=== PATIENT | female | born 1995 | race Caucasian/White ===

== ENCOUNTER → 2023-03-16 | Outpatient (CLI) | payer SELFPAY, OTHER ==
[2023-03-16 10:02] LABS: Absolute Lymphocyte Count 1.91 X10^3/uL (0.83-4.51); Absolute Neutrophil Count 5.7 X10^3/uL (2.0-7.7); Basophil# 0.03 X10^3/uL; Basophil% 0.4 % (0-1); Eosinophil# 0.02 X10^3/uL; Eosinophils% 0.2 % (0-5); Hematocrit 38.9 % (37-47); Hemoglobin 13.5 g/dL (12.0-15.0); Lymphocyte # 1.91 X10^3/ul (0.83-4.51); Lymphocyte % 23.8 % (19-41); Mean Corp Hgb Conc 34.7 g/dL (32-36); Mean Corpuscular Hgb 33.1 pg (27.0-32.0); Mean Corpuscular Volume 95.3 fL (81-99); Mean Platelet Vol. 9.6 fl (6.2-12.0); Monocyte# 0.34 X10^3/uL; Monocyte% 4.2 % (0-10); NRBC Flagged by Analyzer 0 % (0-5); Neutrophil # 5.69 X10^3/uL (2.7-7.7); Neutrophil % 70.9 % (47-70); Platelet Count 145 K/mm3 (150-450); RBC Distribution Width CV 12.9 % (11.6-14.6); RBC Distribution Width SD 44.7 fl (35.1-43.9); Red Blood Count 4.08 M/mm3 (4.2-5.4)
--- NOTE | 2023-03-16 11:50 | US_ITS ---
EXAM: US SECOND OR THIRD TRIMESTER , TRANSABDOMINAL CLINICAL INDICATION: anatomy TECHNIQUE: Transabdominal obstetrical ultrasound of the maternal pelvis and a second or third trimester with image documentation. COMPARISON: No relevant prior studies available. FINDINGS: FETUS: There is an intrauterine gestation. HEART RATE: heart rate is 158 bpm. PRESENTATION: The fetus is in breech position. PLACENTA: Placenta is anterior. No placenta previa. No abruption. AMNIOTIC FLUID: Unremarkable. ANATOMY: The spine, nose, lips, four-chamber heart, diaphragm, stomach, bladder, extremities and three-vessel cord were all visualized. BIOMETRICS GESTATIONAL AGE: Gestational age 20 weeks 2 days. RICHARD: RICHARD 07/25/2023. EFW: Estimated weight 400 g, 35th percentile. BPD: Biparietal diameter 4.9 cm age 20 weeks 5 days, 24th percentile. HC: Head circumference 18.3 cm age 20 weeks 5 days, 16th percentile. AC: Abdominal circumference 16.7 cm age 21 weeks 5 days, 56 percentile. FL: Femur length 3.3 cm age 20 weeks 3 days, 16th percentile. MATERNAL: UTERUS: Unremarkable. No myometrial mass. CERVIX: The cervix measures 4 cm. ADNEXA: Unremarkable. No adnexal masses. FREE FLUID: Maximum vertical pocket of fluid is 6.5 cm. US/OB Anatomy w/ Transvaginal IMPRESSION: Intrauterine gestation with an average ultrasound age of 20 weeks 5 days and ultrasound estimated due date of 07/29/2023. heart rate is 158 bpm. Electronically Signed: Rafal Ayala MD at 23:42 EDT ,
[2023-03-16 13:28] LABS: HIV - WCH Non-Reactive (Nonreactive); Hepatitis B Surface Antigen Non-Reactive (Nonreactive); Hepatitis C Antibody Non-Reactive (Nonreactive); Rubella IgG Non-Reactive (Nonreactive); Syphilis Antibodies Non-reactive
== END | disposition home or self-care (01) ==
PROVIDERS: Referring Provider Obstetrics & Gynecology; Visit Provider Obstetrics & Gynecology
DX: O09.90 Supervision of high risk pregnancy, unspecified, unspecified trimester (principal); Z3A.00 Weeks of gestation of pregnancy not specified
CPT/HCPCS: 36415; 76805; 76817; 85025; 86703; 86762; 86780; 86803; 86850; 86900; 86901; 87086; 87340; 87491; 87591

== ENCOUNTER → 2023-05-04 | Outpatient (CLI) | payer OTHER, SELFPAY ==
[2023-05-04 10:00] LABS: Absolute Lymphocyte Count 1.97 X10^3/uL (0.83-4.51); Absolute Neutrophil Count 7.2 X10^3/uL (2.0-7.7); Basophil# 0.02 X10^3/uL; Basophil% 0.2 % (0-1); Eosinophil# 0.02 X10^3/uL; Eosinophils% 0.2 % (0-5); Hematocrit 42.2 % (37-47); Hemoglobin 14.4 g/dL (12.0-15.0); Lymphocyte # 1.97 X10^3/ul (0.83-4.51); Lymphocyte % 20.1 % (19-41); Mean Corp Hgb Conc 34.1 g/dL (32-36); Mean Corpuscular Hgb 32.9 pg (27.0-32.0); Mean Corpuscular Volume 96.3 fL (81-99); Mean Platelet Vol. 9.7 fl (6.2-12.0); Monocyte# 0.55 X10^3/uL; Monocyte% 5.6 % (0-10); NRBC Flagged by Analyzer 0 % (0-5); Neutrophil % 73.3 % (47-70); Platelet Count 146 K/mm3 (150-450); RBC Distribution Width CV 12.3 % (11.6-14.6); RBC Distribution Width SD 43.4 fl (35.1-43.9); Red Blood Count 4.38 M/mm3 (4.2-5.4); White Blood Count 9.8 K/mm3 (4.4-11.0)
[2023-05-04 10:14] LABS: Glucose Challenge Gest 1H 50g 118 mg/dL (70-140)
[2023-05-04 10:47] LABS: HIV - WCH Non-Reactive (Nonreactive); Syphilis Antibodies Non-reactive
== END | disposition home or self-care (01) ==
PROVIDERS: Referring Provider Obstetrics & Gynecology; Visit Provider Obstetrics & Gynecology
DX: Z34.90 Encounter for supervision of normal pregnancy, unspecified, unspecified trimester (principal); D69.6 Thrombocytopenia, unspecified; O99.119 Other diseases of the blood and blood-forming organs and certain disorders involving the immune mechanism complicating pregnancy, unspecified trimester; Z3A.00 Weeks of gestation of pregnancy not specified
CPT/HCPCS: 36415; 82950; 85025; 86703; 86780; 86850; 86900; 86901; 87491; 87591

== ENCOUNTER → 2023-06-17 | Outpatient (CLI) | payer OTHER, SELFPAY ==
[2023-06-17 15:17] LABS: Absolute Lymphocyte Count 1.92 X10^3/uL (0.83-4.51); Absolute Neutrophil Count 8.3 X10^3/uL (2.0-7.7); Basophil# 0.03 X10^3/uL; Basophil% 0.3 % (0-1); Eosinophils% 0.9 % (0-5); Hematocrit 40.9 % (37-47); Hemoglobin 14.2 g/dL (12.0-15.0); Lymphocyte # 1.92 X10^3/ul (0.83-4.51); Lymphocyte % 17.3 % (19-41); Mean Corp Hgb Conc 34.7 g/dL (32-36); Mean Corpuscular Volume 97.8 fL (81-99); Mean Platelet Vol. 9.6 fl (6.2-12.0); Monocyte# 0.65 X10^3/uL; Monocyte% 5.9 % (0-10); NRBC Flagged by Analyzer 0 % (0-5); Neutrophil # 8.32 X10^3/uL (2.7-7.7); Neutrophil % 75.1 % (47-70); Platelet Count 154 K/mm3 (150-450); RBC Distribution Width CV 12.4 % (11.6-14.6); RBC Distribution Width SD 44.7 fl (35.1-43.9); Red Blood Count 4.18 M/mm3 (4.2-5.4); White Blood Count 11.1 K/mm3 (4.4-11.0)
== END | disposition home or self-care (01) ==
LOC: PAVLAB 14:44
PROVIDERS: Referring Provider Nurse Practitioner Women's Health; Visit Provider Nurse Practitioner Women's Health
DX: O99.119 Other diseases of the blood and blood-forming organs and certain disorders involving the immune mechanism complicating pregnancy, unspecified trimester (principal); D69.6 Thrombocytopenia, unspecified; Z3A.00 Weeks of gestation of pregnancy not specified
CPT/HCPCS: 36415; 85025

== ENCOUNTER → 2023-06-29 | Outpatient (CLI) | payer OTHER, SELFPAY | END | disposition home or self-care (01) | PROVIDERS: Visit Provider Advanced Practice Midwife | DX: O09.90 Supervision of high risk pregnancy, unspecified, unspecified trimester (principal); Z3A.00 Weeks of gestation of pregnancy not specified | CPT/HCPCS: 87081 ==

== ENCOUNTER 2023-07-18 02:02 | Inpatient (IN) | payer SELFPAY, OTHER ==
[2023-07-18] VITALS (40 sets, daily range): BP systolic 101–129; BP diastolic 56–78; PULSE 75–100; RESP 15–18; TEMP 36.4–37; O2SAT 82–100; BMI 34.9
--- OUTSIDE RECORDS SUMMARY | 2023-07-18 01:53 | XMS RPT_ITS | CCD ---
Author Name Unknown Address [address] [place] [address] Organization [facility] Care Team Providers Care Molecular Spectroscopist Name Role Phone VACCARIELLO, JEY Admitting Unavailable VACCARIELLO, JEY Attending Unavailable VACCARIELLO, JEY Primary Care Unavailable UPTAIN, CRYSTAL CNM Admitting Unavailable UPTAIN, CRYSTAL CNM Attending Unavailable UPTAIN, CRYSTAL CNM Primary Care Unavailable VACCARIELLO, JEY Admitting Unavailable VACCARIELLO, JEY Attending Unavailable VACCARIELLO, JEY Primary Care Unavailable UPTAIN, CRYSTAL CNM Admitting Unavailable UPTAIN, CRYSTAL CNM Attending Unavailable UPTAIN, CRYSTAL CNM Primary Care Unavailable UPTAIN, CRYSTAL CNM Admitting Unavailable UPTAIN, CRYSTAL CNM Attending Unavailable UPTAIN, CRYSTAL CNM Primary Care Unavailable VACCARIELLO, JEY Admitting Unavailable VACCARIELLO, JEY Attending Unavailable VACCARIELLO, JEY Primary Care Unavailable UPTAIN, CRYSTAL CNM Admitting Unavailable UPTAIN, CRYSTAL CNM Attending Unavailable UPTAIN, CRYSTAL CNM Primary Care Unavailable VACCARIELLO, JEY Admitting Unavailable VACCARIELLO, JEY Attending Unavailable VACCARIELLO, JEY Primary Care Unavailable Problems Problem Classification Problem Date Documented Da te Episodic/Chronic Malposition; malpresentation (4 sources) Maternal care for breech presentation, fetus 1; Translations: [Maternal care for breech presentation, fetus 2] Onset: 02-06-2022 Episodic Other complications of (1 source) Varicose veins of lower extremity in , third trimester; Translations: [Varicose veins of lower extremity in , third trimester] Onset: 02-06-2022 Episodic Other complications of (1 source) Twins, both liveborn; Translations: [Twins, both liveborn] Onset: 02-06-2022 Episodic Other and delivery including normal (7 sources) Twin , dichorionic/diamniot ic, third trimester; Translations: [Twin , unspecified number of placenta and unspecified number of amniotic sacs, third trimester] Onset: 01-15-2022 Episodic Other screening for suspected conditions (not mental disorders or infectious disease) (1 source) Encounter for screening for Streptococcus B; Translations: [Encounter for screening for Streptococcus B] Onset: 01-22-2022 Episodic Residual codes; unclassified (1 source) 38 weeks gestation of ; Translations: [38 weeks gestation of ] Onset: 02-06-2022 Episodic Residual codes; unclassified (1 source) 37 weeks gestation of ; Translations: [37 weeks gestation of ] Onset: 01-22-2022 Episodic Residual codes; unclassified (1 source) 34 weeks gestation of ; Translations: [34 weeks gestation of ] Onset: 01-08-2022 Episodic Residual codes; unclassified (1 source) 33 weeks gestation of ; Translations: [33 weeks gestation of ] Onset: 01-01-2022 Episodic Residual codes; unclassified (1 source) 32 weeks gestation of ; Translations: [32 weeks gestation of ] Onset: 12-25-2021 Episodic Results Test Name Value Interpretation Reference Range Facil ity Encounters Encounter Date Encounter Type Care Provider Facility Start: 02-06-2022 End: 02-08-2022 Evaluation and management of inpatient [facility] Start: 01-29-2022 End: 01-29-2022 ambulatory CRYSTAL CNM [facility] Start: 01-22-2022 End: 01-22-2022 ambulatory CRYSTAL CNM [facility] Start: 01-22-2022 End: 01-22-[address] [facility] Start: 01-15-2022 End: [facility]-2022 [facility] Start: 01-08-2022 End: 01-08-2022 ambulatory CRYSTAL CNM [facility] Start: 01-01-2022 End: 01-01-2022 ambulatory CRYSTAL CNM [facility] Start: 12-25-2021 End: 12-25-[address] [facility] Procedures Date Procedure Procedure Detail Performing Clinician Start: 02-06-2022 Extraction of Produc ts of Conception, Low Cervical, Open Approach JEY HUMPHREYS Payers Date Payer Category Payer Unknown [id number] [id number] [id number] 1995 Unknown [id number] [id number] Unknown Summary Purpose Family History No Family History Records FoundNo Family History Records Found Advance Directives No Advanced Directives Records FoundNo Advanced Directives Records Found Additional Source Comments INFORMATION SOURCE (unrecogn ized section and content) DATE CREATED AUTHOR AUTHOR'S ORGANIZ ATION 02/26/2022 [facility] FOR RECORDS PERTAINING TO PATIENTS WHO ARE OR HAVE BEEN ENROLLED IN A CHEMICAL DEPENDENCY/SUBSTANCEABUSE PROGRAM, SOME INFORMATION MAY BE OMITTED. This clinical summary was aggregated from multiple sources. Caution should be exercised in using it in the provision of clinical care. This summary normalizes information from multiple sources, and as a consequence, information in this document may materially change the coding, format and clinical context of patient data. In addition, data may be omitted in some cases. CLINICAL DECISIONS SHOULD BE BASED ON THE PRIMARY CLINICAL RECORDS. [employer] provides no warranty or guarantee of the accuracy or completeness of information in this document.
[2023-07-18] MEDS: Lactated Ringers 1,000 ML 50 ML IV (02:05)
--- OUTSIDE RECORDS SUMMARY | 2023-07-18 02:05 | XMS RPT_ITS | CCD ---
Author Name Unknown Address [address] [place] [address] Organization [facility] Care Team Providers Care Loom Inspector Name Role Phone VACCARIELLO, JEY Admitting Unavailable [...] End: 02-08-2022 Evaluation and management of inpatient [facility] Start: 01-29-2022 End: 01-29-2022 ambulatory CRYSTAL CNM [facility] Start: 01-22-2022 End: 01-22-2022 ambulatory CRYSTAL CNM [facility] Start: 01-22-2022 End: 01-22-2022 ambulatory [facility] Start: 01-15-2022 End: 01-15-2022 [facility] Start: 01-08-2022 End: 01-08-2022 ambulatory CRYSTAL CNM [facility] Start: 01-01-2022 End: 01-01-2022 ambulatory CRYSTAL CNM [facility] Start: 12-25-2021 End: 12-25-2021 ambulatory [facility] Procedures Date Procedure Procedure Detail Performing Clinician Start: 02-06-2022 Extraction of Produc ts of Conception, Low Cervical, Open Approach JEY HUMPHREYS Payers Date Payer Category Payer Unknown [id number] [id number] 1995 Unknown [id number] Unknown Summary Purpose Family History No Family History Records FoundNo Family History Records Found Advance Directives No Advanced Directives Records FoundNo Advanced Directives Records Found Additional Source Comments INFORMATION SOURCE (unrecogn ized section and content) DATE CREATED AUTHOR AUTHOR'S ORGANIZ ATION 02/26/2022 [facility] FOR RECORDS PERTAINING TO PATIENTS WHO ARE [...] BE BASED ON THE PRIMARY CLINICAL RECORDS. [employer] provides no warranty or guarantee of the accuracy or completeness of information in this document.
[2023-07-18 02:29] LABS: Absolute Lymphocyte Count 2.47 X10^3/uL (0.83-4.51); Absolute Neutrophil Count 7.3 X10^3/uL (2.0-7.7); Basophil# 0.02 X10^3/uL; Basophil% 0.2 % (0-1); Eosinophil# 0.02 X10^3/uL; Eosinophils% 0.2 % (0-5); Hematocrit 42.7 % (37-47); Hemoglobin 14.8 g/dL (12.0-15.0); Lymphocyte # 2.47 X10^3/ul (0.83-4.51); Mean Corp Hgb Conc 34.7 g/dL (32-36); Mean Corpuscular Hgb 33.6 pg (27.0-32.0); Mean Corpuscular Volume 96.8 fL (81-99); Monocyte# 0.49 X10^3/uL; Monocyte% 4.8 % (0-10); NRBC Flagged by Analyzer 0 % (0-5); Neutrophil # 7.25 X10^3/uL (2.7-7.7); Neutrophil % 70.3 % (47-70); Platelet Count 163 K/mm3 (150-450); RBC Distribution Width CV 12.2 % (11.6-14.6); RBC Distribution Width SD 43.6 fl (35.1-43.9); Red Blood Count 4.41 M/mm3 (4.2-5.4); White Blood Count 10.3 K/mm3 (4.4-11.0)
[2023-07-18 02:31] LABS: POSITIVE COUNT NO; POSITIVE DIFFERENTIAL NO; POSITIVE MORPHOLOGY NO
--- NOTE | 2023-07-18 02:33 | HP.PCM.OB_ITS ---
HPI - General General Date of Admission: 07/18/23 HPI Narrative WAYNE DAMON, is a 28 F who presents IAL regular ctx 5 cm dilated. no vb lof admits good fm Maternal Data Information RICHARD Calculator Estimated Delivery Date Method Current WG Current Estimate 07/25/23 LMP (Certain) 39w 0d PFSH PFSH Medical History (Updated 07/18/23 @ 02:[address] Guillermina Polanco MD) delivery delivered Medical History no medical history Home Medications vit,calcium no.40-iron fum 27 mg iron-folate no.1 1 mg tablet (PNV- Select) tab PO 03/12/23 [History Last Taken 07/17/23 18:00] Allergy/AdvReac Type Severity Reaction Status Date / Time No Known Allergies Allergy Verified 07/18/23 01:58 Family History Mother Hypertension Surgical History (Updated 07/18/23 @ 02:31 by Luciana Cagle) History of delivery Social History adopted: No household members: family number of children: 4 current occupational status: unemployed pets and animals: No history of recent travel: No sexually active: Yes Smoking Status: Never smoker alcohol intake: never substance use type: does not use caffeine: No seatbelt use: other do you feel safe at home: Yes additional social history: CamronEmyhyacinth History 4 Elective abortions Hx Para 3 Spontaneous abortions Hx # Term Pregnancies Ectopic pregnancies Hx # Pregnancies Multiple births 1 # of living children 4 Past Pregnancies Del. Date Name GA/Weeks Outcome Route Bth Weight Gen Labor Lgth Anes thes ia Del Locatn Provider FOB 09/20/19 Jefry 38 live - full term Male [facility] 12/06/20 Shawanda 40 live - full term Female [facility] 02/06/22 Elier-twin 38 live - full term Male [place] 02/06/22 Josue-Twin Male Visit Details Expected Delivery Route/Plan TOLAC patient counseled regarding risks/benefits of trial of labor versus repeat . ACOG/uptodate education given to patient. [] % likelihood of success per calculator TOLAC consent form signed: completed. Labor Preferences- CB/BF classes: no labor support person: Camron labor intervention preferences: [] pain management options preferred: limited cut cord/dad catch: cord : yes PP control planned: discussed discussed possible routes of delivery and associated risks: [] special requests: [] Plans Covid status: declined Flu vaccine: declined Tdap vaccine: declined Rhogam: given 05/04/23 LARC form signed: yes Problem list reviewed and updated with the most current plan of care details and appropriate orders placed. Relevant counseling for the gestational age provided. Continue routine care and follow up unless otherwise noted in visit notes/problem list details OB Flowsheet Initial Weight: Not Recorded Date -?-?-?-?-?-?-?-?-?-?-?-?- EGA Weight BP Urine Prot -?-?-?-?-?-?-?-?-?-?-?-?- Glucose FHR FuHt Pres Dilation -?-?-?-?-?-?-?-?-?-?-?-?- Effaced St Visit Note 03/16/23 -?-?-?-?-?-?-?-?-?-?-?-?- 21w 2d 195 lb 4 oz 103/69 -?-?-?-?-?-?-?-?-?-?-?-?- 155 -?-?-?-?-?-?-?-?-?-?-?-?- SM- late prenata l care, no vb cramping, anatomy scan today. [facility] 04[facility] -?-?-?-?-?-?-?-?-?-?-?-?- 25w 2d 202 lb 122/80 Negative -?-?-?-?-?-?-?-?-?-?-?-?- Negative 165 24 -?-?-?-?-?-?-?-?-?-?-?-?- KW-no vb/crampin g. good FM. KW-no vb/cramping. good FM. rubella not immune. US reviewed. no concerns today. plans labs next visit in [place] 05/04/23 -?-?-?-?-?-?-?-?-?-?-?-?- 28w 2d 203 lb 2 oz 112/68 Nega tive -?-?-?-?-?-?-?-?-?-?-?-?- Negative 158 28 -?--?-?-?-?-?-?-?-?-?-?-?- MH-No VB, LOF. G ood FM. Sl low platelet, discussed. No anemia. GCT normal. Rhogam, larc. Declines flu and tdap. 05/18/23 -?-?-?-?-?-?-?-?-?-?-?-?- 30w 2d Trace -?-?-?-?-?-?-?-?-?-?-?-?- Negative 150 30 -?-?-?-?-?-?-?-?-?-?-?-?- KW-no vb/lof/ctx . good fm. no concerns today 06/05/23 -?-?-?-?-?-?-?-?-?-?-?-?- 32w 6d 206 lb 8 oz 109/67 Nega tive -?-?-?-?-?-?-?-?-?-?-?-?- Negative 145 31 -?-?-?-?-?-?-?-?-?-?-?-?- JV- TOLAC consen t signed today. needs rpt cbc. states has been getting bills and wants to know if should be in package plan. 06/17/23 -?-?-?-?-?-?-?-?-?-?-?-?- 34w 4d 206 lb 114/64 Negative -?-?-?-?-?-?-?-?-?-?-?-?- Negative 148 35 -?-?-?-?-?-?-?-?-?-?-?-?- MH-No VB, LOF. G ood FM. Doing CBC today. 06/29/23 -?-?-?-?-?-?-?-?-?-?-?-?- 36w 2d 209 lb 109/74 Negative -?-?-?-?-?-?-?-?-?-?-?-?- Negative 145 36 Cephalic 2 -?-?-?-?-?-?-?-?-?-?-?-?- 60 -3 kw-no vb/l of/ctx. good fm. GBS today. plt 154 at last cbc. 07/07/23 -?-?-?-?-?-?-?-?-?-?-?-?- 37w 3d 210 lb 108/71 Negative -?-?-?-?-?-?-?-?-?-?-?-?- Negative 143 36.5 Cephalic -?-?-?-?-?-?-?-?-?-?-?-?- LC- no lof.vb.ct x. good fm. no concerns today. desires partner to have vasectomy, discussed contacting urology. 07/15/23 -?-?-?-?-?-?-?-?-?-?-?-?- 38w 4d 211 lb 4 oz 108/69 Nega tive -?-?-?-?-?-?-?-?-?-?-?-?- Negative 150 38 Cephalic 2 .5 -?-?-?-?-?-?-?-?-?-?-?-?- 60 -2 kw-no vb/l of. some irregular contractions over the last few days. good fm. discussed coming in next week for membrane sweep. NST FHR Rate Baby A Baseline: 130 Variability:: Moderate Accelerations:: 15 x 15 Decelerations:: None NST Reactive:: Yes FHR Category:: Category I Uterine Activity:: q2-3 ROS Constitutional Constitutional: Reports systems reviewed and no addt'l complaints, except as documented ENT HEENT: Reports systems reviewed and no addt'l complaints, except as documented Cardiovascular Cardiovascular: Reports systems reviewed and no addt'l complaints, except as documented Respiratory/Chest Respiratory/Chest: Reports systems reviewed and no addt'l complaints, except as documented Gastrointestinal Gastrointestinal: Reports systems reviewed and no addt'l complaints, except as documented and nausea; Denies abdominal pain Genitourinary Genitourinary: Reports systems reviewed and no addt'l complaints, except as documented, contractions Details: present and frequency (regular ) and movement Details: present Musculoskeletal Musculoskeletal: Reports systems reviewed and no addt'l complaints, except as documented Integumentary Integumentary: Reports as per HPI Neurologic Neurologic: Reports systems reviewed and no addt'l complaints, except as docume nted Endocrine Endocrinology: Reports systems reviewed and no addt'l complaints, except as documented Vital Signs Vital Signs Vital Signs: 07/18/23 02:13 07/18/23 02:13 07/18/23 02:13 Temperature Temperature Source Temporal Pulse Rate 97 Blood Pressure 129/78 H BP Systolic 129 BP Diastolic 78 07/18/23 02:13 Temperature 97.8 F Temperature Source Pulse Rate Blood Pressure BP Systolic BP Diastolic Weight Weight: 210 lb Body Mass Index (BMI) 34.9 Physical Exam Const alert, oriented x3 and healthy appearing Constitutional Narrative: uncomfortable with contractions HEENT normocephalic and moist oral mucous membranes Head and Scalp: atraumatic Neck full ROM, no lymphadenopathy, supple and thyroid normal General: trachea midline Thyroid: thyroid normal Lymph Lymphatic: no lymphadenopathy noted Chest inspection of chest normal Resp normal respiratory effort Cardio regular rate GI normal to inspection, nondistended, normoactive bowel sounds, soft to palpation and non-tender Inspection: gravid external exam normal Bimanual Exam - Vag & Uterus: uterus non-tender Manual OB Exam: estimated gestational size appropriate, presentation cephalic, dilated, effaced and station Extremity normal to inspection General Extremity: Negative for edema Skin no rashes or lesions noted Neuro deep tendon reflexes 2+ bilaterally Motor Exam: strength 5/5 throughout and clonus absent Psych mental status grossly normal Labs Labs Labs: Blood Type A NEGATIVE Antibody Screen NEGATIVE Hct 42.7 % (37-47) Hgb 14.8 g/dL (12.0-15.0) Obstetrics Ultrasound Syphilis Total Ab Non-reactive Rubella IgG Antibody Non-Reactive (Nonreactive) Hep Bs Antigen Non-Reactive (Nonreactive) Hepatitis C Antibody Non-Reactive (Nonreactive) HIV 1&2 Antibody Non-Reactive (Nonreactive) Glucose 1 Hr 50 gm 118 mg/dL (70-140) Assessment & Plan (1) : QUALIFIERS: Weeks of gestation: 38 weeks Qualified Code(s): Z3A.38 - 38 weeks gestation of COMMENT: GBS neg, declined genetic, carrier, and afp screen. nl anatomy (2) Desires (vaginal after ) trial: COMMENT: c/s for breech twins (3) Supervision of high risk , antepartum: COMMENT: [id number] RICHARD 07/25/23 PC Idalmis Capps David & Josue (Twins) Camron (4) Late care affecting : QUALIFIERS: Trimester: third trimester Qualified Code(s): O09.33 - Supervision of with insufficient care, third trimester COMMENT: 21 weeks. (5) Rh negative status during : QUALIFIERS: Trimester: third trimester Qualified Code(s): O26.893 - Other specified related conditions, third trimester; Z67.91 - Unspecified blood type, Rh negative COMMENT: will give rhogam at 28 weeks and PRN, Rogham given 05/04/23 (6) Not immune to rubella: COMMENT: offer PP (7) Thrombocytopenia affecting : COMMENT: CBC 4 wk(146) 06/17:154. Rpt 4 wk (8) Active labor at term: (9) Encounter for trial of labor: PLAN: Plan Patient presents IAL, plan expectant management for , pitocin/AROM PRN if needed. Pain management: prefers minimal intervention GBS neg. Management of any complications: none I have reviewed the [facility] and made any clinically relevant updates.
[2023-07-18 03:47] LABS: Syphilis Antibodies Non-reactive
[2023-07-18] MEDS: LACTATED RINGERS 500 ML 999 ML IV (06:10)
[2023-07-18] MEDS: Oxytocin 15 Units/NS 250ml 15 UNITS/250 ML IV.SOLN 83 UNITS IV (06:36)
[2023-07-18] MEDS: Oxytocin 10 UNITS/ML Vial IM (06:36)
--- NOTE | 2023-07-18 06:47 | EX.PCM.OBRPT ---
Assessment & Plan (1) Encounter for trial of labor: (2) Active labor at term: (3) Thrombocytopenia affecting : COMMENT: CBC 4 wk(146) 06/17:154. Rpt 4 wk (4) Not immune to rubella: COMMENT: offer PP (5) Rh negative status during : QUALIFIERS: Trimester: third trimester Qualified Code(s): O26.893 - Other specified related conditions, third trimester; Z67.91 - Unspecified blood type, Rh negative COMMENT: will give rhogam at 28 weeks and PRN, Rogham given 05/04/23 (6) Late care affecting : QUALIFIERS: Trimester: third trimester Qualified Code(s): O09.33 - Supervision of with insufficient care, third trimester COMMENT: 21 weeks. (7) Supervision of high risk , antepartum: COMMENT: [id number] RICHARD 07/25/23 PC Idalmis Capps David & Josue (Twins) Camron (8) Desires (vaginal after ) trial: COMMENT: c/s for breech twins (9) : QUALIFIERS: Weeks of gestation: 38 weeks Qualified Code(s): Z3A.38 - 38 weeks gestation of COMMENT: GBS neg, declined genetic, carrier, and afp screen. nl anatomy (10) Vaginal after : COMMENT: SM IAL 39 boy Ron Maternal Data Information RICHARD Calculator Estimated Delivery Date Method Current WG Current Estimate 07/25/23 LMP (Certain) 39w 0d Vaginal Delivery Operative Information Date of Procedure: 07/18/23 Pre-Operative Diagnosis: see a/p diagnoses Post-Operative Diagnosis: same Surgery / Procedure Performed: Type of Anesthesia: Epidural Special Medications: none Estimated Blood Loss: 200 Fluids Replaced: crystalloid Findings Description of Procedure: Patient began pushing and delivered the head in the ISHA presentation. The head was delivered atraumatically and a loose nuchal cord ?1 was identified and the infant delivered through without complication. The anterior and posterior shoulders delivered without complication followed by the rest of the and the infant was placed on the maternal abdomen. Delayed cord clamping was employed for approximately 60 seconds. Cord was clamped and cut and gentle traction was applied to the cord and the placenta delivered spontaneously immediately following it was noted to be intact with three-vessel cord. The perineum and vagina were inspected and noted to have no laceration. EBL was 300. Patient and tolerated delivery well. Amniotic Fluid Description: Clear Placental Delivery Description: Spontaneous Placenta Disposition: [facility] Cord Vessel Description: 3 Vessels Cord Entanglement: None Delayed Cord Clamping: Yes Post Vaginal Delivery Medications Given After Delivery: IV Pitocin Episiotomy Description: None Complication Complications: None Multi Select Codes Urinary/Genital Urinary/Genital CPT Codes: 62445 delivery [facility]
--- NOTE | 2023-07-18 07:01 | DCINST_ITS ---
Discharge Instructions Diet Discharge Diet: No restrictions Activity Discharge Activity: Return to Normal Activity, May Not Drive (while taking narcotic pain medications.) and May Shower May resume sexual activity in: 4-6 weeks Dressing / Incision Call your doctor if your incision/area has: Continuous Slow Oozing, Sudden Increased Bleeding, Increased Pain/ Swelling, Increased Redness and Foul Smelling Discharge Follow Up Care Please Follow Up With: Guillermina Polanco MD When: Call [phone] to make an appointment with your doctor in 6 weeks. If you had elevated blood pressure or 4th degree laceration, you will need to be seen in 2 weeks. Test Results: Test results from this visit will be discussed in further detail at your follow- up appointment, if applicable. Discharge Plan Admission Admit Date/Time: 07/18/23 02:02 Attending Provider: Guillermina Polanco Primary Care Provider: Care Physician,Yuli Primary Discharge Orders/Prescriptions Prescriptions: No Action PNV-Select 27-1 mg tablet PO Referrals / Follow Up: Care Physician,No Primary [Primary Care Provider] - Disposition Disposition (needs filled in before D/C Order can be placed): Home, Self Care
[2023-07-18] MEDS: Acetaminophen 500 MG Tablet 1000 MG PO (08:01)
[2023-07-18] MEDS: 0.9% Saline Lock 10 ML Syringe IV (09:37)
[2023-07-18] MEDS: Rho(D) Immune Globulin 300 MCG (1500 Unit) Syringe IV (09:38)
[2023-07-19 03:40] VITALS: BP 105/59; PULSE 82; RESP 16; TEMP 36.3; O2SAT 97
[2023-07-19 07:39] VITALS: BP 102/58; PULSE 82; RESP 14; TEMP 36.3; O2SAT 96
--- NOTE | 2023-07-19 09:54 | PCM.PN.OB ---
Subjective Subjective Patient doing well without complaints. Tolerating PO. Ambulating and voiding without difficulty. feeding well. Denies chest pain, shortness of breath, calf pain/swelling, fevers, chills, lightheadedness. Objective Data Objective Data Vital Signs: Vital Signs Temp Pulse Resp BP Pulse Ox O2 Del Method 97.4 F L 82 14 102/58 L 96 Room Air 07/19/23 07:39 07/19/23 07:39 07/19/23 07:39 07/19/23 07:39 07/19/23 07:39 07/19/23 07:39 Oxygen Delivery Method Room Air Weight: 210 lb Body Mass Index (BMI) 34.9 Intake & Output: Intake and Output for Last 24 Hours 07/17/23 07/18/23 07/19/23 23:59 23:59 23:59 Intake Total 603.83 / 603.83 Output Total 1030 / 1030 Balance -426.17 / -426.17 Lab / Micro Data 07/18/23 02:05 ROS Constitutional Constitutional: Reports systems reviewed and no addt'l complaints, except as documented Cardiovascular Cardiovascular: Reports systems reviewed and no addt'l complaints, except as documented Respiratory/Chest Respiratory/Chest: Reports systems reviewed and no addt'l complaints, except as documented Gastrointestinal Gastrointestinal: Reports systems reviewed and no addt'l complaints, except as documented Physical Exam Const alert, oriented x3 and no apparent distress HEENT Head and Scalp: atraumatic Resp normal respiratory effort GI soft to palpation and non-tender Inspection: incision intact, healing well and drainage (none) Bimanual Exam - Vag & Uterus: uterus non-tender Uterus Palpation: uterus fundus firm (below Umbilicus) Assessment & Plan (1) Vaginal after : COMMENT: SM IAL 39 boy Ron (2) Not immune to rubella: COMMENT: offer PP (3) Rh negative status during : QUALIFIERS: Trimester: third trimester Qualified Code(s): O26.893 - Other specified related conditions, third trimester; Z67.91 - Unspecified blood type, Rh negative COMMENT: will give rhogam at 28 weeks and PRN, Rogham given 05/04/23 PLAN: Plan s/p PPD # 1 1. routine post delivery care 2. breast feeding- support given 3. rh positive 4. rubella non immune offer vaccination
[2023-07-19 12:15] VITALS: BP 104/62; PULSE 84; RESP 14; TEMP 36.4; O2SAT 97
== END 2023-07-19 12:30 | disposition home or self-care (01) | DRG 806 ==
LOC: WPOUT 02:02 → WP 02:02
PROVIDERS: Admitting Provider Obstetrics & Gynecology; Referring Provider Obstetrics & Gynecology; Visit Provider Obstetrics & Gynecology
DX: O69.81X0 Labor and delivery complicated by cord around neck, without compression, not applicable or unspecified (principal); Z37.0 Single live birth; O99.12 Other diseases of the blood and blood-forming organs and certain disorders involving the immune mechanism complicating childbirth; D69.6 Thrombocytopenia, unspecified; Z67.91 Unspecified blood type, Rh negative; O34.219 Maternal care for unspecified type scar from previous cesarean delivery; O26.893 Other specified pregnancy related conditions, third trimester; Z3A.38 38 weeks gestation of pregnancy
CPT/HCPCS: 59025; 59050; 85025; 85461; 86780; 86850; 86900; 86901; 90384; 99221; J7120; A4216; G0378; J2790; J2791